=== PATIENT | female | born 1940 ===

== ENCOUNTER → 2024-06-05 10:34 | Outpatient (REF) | payer MEDICARE, SELFPAY ==
--- NOTE | 2024-06-05 10:42 | CA_ITS ---
Transthoracic Echocardiogram Patient (Last, First, Middle): Sofie Mahoney, Gender: Female Date of : 1940 Age: 84 Procedure Date: 06/05/2024 Procedure Type: Transthoracic Echocardiogram Location: OP Height: 160.02 cm Weight: 63.5 kg BSA: 1.66 m2 Heart Rate: bpm BP: 158 / 82 mmHg Anode Builder: TO Referring MD: Rebeka Howe MD Symptoms: I35.0 NON RHU I42.1 HOCM Study Quality: Fair/Contrast ECG Rhythm: Sinus Conclusions: - The left ventricular systolic function is hyperdynamic. The visually estimated ejection fraction is >70%. - There is severe septal asymmetric hypertrophy(2.3 cm). 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 - The left atrium is severely dilated. - There is severe aortic valve stenosis. - There is severe mitral annular calcification. There is mild to moderate mitral valve regurgitation. There is moderate mitral valve stenosis. - There is mild to moderate tricuspid valve regurgitation. - The right ventricular systolic pressure is 81 mmHg. Severe pulmonary hypertension is present. Findings Procedure Information Contrast agent, definity, is being given per protocol without apparent complications. Left Ventricle Normal left ventricular cavity size. The left ventricular systolic function is hyperdynamic. The visually estimated ejection fraction is >70%. There is no evidence of regional wall motion abnormalities. Evidence suggests grade III (severe) diastolic dysfunction. There is severe septal asymmetric hypertrophy. (2.3 cm). Interventricular and LVOT gradients noted. Peak gradient at basal left ventricle, 31 mmHg. with Valsalva, 35 mmHg. 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 Right Ventricle Mildly increased right ventricular cavity size. There is mildly decreased right ventricular systolic function. Atria The left atrium is severely dilated. The right atrium is normal in size. Aortic Valve There is severe calcification of the aortic valve. There is severe aortic valve stenosis. The peak aortic velocity is 4.72 m/s with a calculated peak gradient of 89 mmHg. The mean gradient is 58 mmHg. The aortic valve area is 0.85 cm2. There is mild aortic valve regurgitation. Mitral Valve There is severe mitral annular calcification. There is mild to moderate mitral valve regurgitation. There is moderate mitral valve stenosis. Pulmonic Valve There is trace pulmonic valve regurgitation. Tricuspid Valve There is mild to moderate tricuspid valve regurgitation. The right ventricular systolic pressure is 81 mmHg. Severe pulmonary hypertension is present. Great Vessels The asc aorta is normal in size. Venous The inferior vena cava is normal in size and collapses greater than 50% with inspiration. Pericardium/Pleural There is no evidence of pericardial effusion. Prior Study Comparison No prior study available for comparison. Measurements 2D Linear Measurements IVSd: 1.93 0.6-0.9/0.6-1.0 cm LVIDd: 4.75 3.9-5.3/4.2-5.9 cm LVIDd Index: 2.86 2.4-3.2/2.2-3.1 cm/m2 LVIDs: 3.15 2.0-3.6 cm LVPWd: 0.86 0.7-1.1 cm LA Diam: 4.70 2.7-3.8/3.0-4.0 cm LAIDs Index: 2.83 1.5-2.3 cm/m2 LV Mass: 334.17 67-162/88-224 g LV Mass Index: 201.31 43-95/49-115 g/m2 LVOT Diam: 1.70 3.0+(-)1.3 cm 2D Systolic Function EF 4C: 64.30 >55% Mitral Valve MV VTI: 0.70 MV Pk Jovon: 2.62 MV Mn Jovon: 1.25 MV Pk Grad: 27.00 MV Mn Grad: 8.00 MV Pk E: 1.86 MV PK A: 0.72 MV Decel Time: 350.00 E/A: 2.60 E'Lateral: 6.53 E'Medial: 3.05 E/E' Med: 61.00 E/E' Lat: 28.50 PHT: 102.00 MVA PHT: 2.16 MVA Continuity: 1.40 Decel Hanson: 5.33 Aortic Valve AoV Pk Jovon: 4.72 AoV Mn Jovon: 3.65 AoV VTI: 1.16 AoV Pk Grad: 89.00 Aov Mn Grad: 58.00 SETH Cont.VTI: 0.85 AI Pk Jovon: 3.36 AI Hanson: 2.48 LVOT LVOT Pk Jovon: 1.82 LVOT Mn Jovon: 1.27 LVOT VTI: 0.43 LVOT Pk Grad: 13.00 LVOT Mn Grad: 8.00 LVOT Diam: 1.70 LVOT Area: 2.27 Diastolic Function MV Pk E: 1.86 MV Pk A: 0.72 E/A: 2.60 E'Medial: 3.05 E/E' Med: 61.00 E' Laterial: 6.53 E/E' Lat: 28.50 Right Ventricle TAPSE (mm): 18.30 TVS' Jovon: 8.27 Tricuspid Valve TR Pk Jovon: 4.28 TR Pk Grad: 73.00 RA Press: 8.00 RVSP: 81.00 Great Vessels Aorta Sinus of Valsalva: 2.82 2.0-3.5 cm Ao Asc: 3.10 2.1-3.4 cm Updated in Other Vendor System with Status of Final Manish Hunter MD electronically signed on 06/06/2024 12:30:29 PM with status of Final
== END ==
LOC: HO.CARD 10:34
PROVIDERS: PCP Internal Medicine; Visit Provider Internal Medicine
DX: I42.1 Obstructive hypertrophic cardiomyopathy (principal)
CPT/HCPCS: 93306; Q9957

== ENCOUNTER → 2024-06-05 10:42 | Outpatient (BNV) | payer MEDICARE, SELFPAY | PROVIDERS: PCP Internal Medicine; Visit Provider Internal Medicine | DX: I42.1 Obstructive hypertrophic cardiomyopathy (principal); I27.20 Pulmonary hypertension, unspecified; I34.2 Nonrheumatic mitral (valve) stenosis; I34.0 Nonrheumatic mitral (valve) insufficiency; I36.1 Nonrheumatic tricuspid (valve) insufficiency | CPT/HCPCS: 93306 ==